=== PATIENT | male | born 1960 | race Caucasian/White ===

== ENCOUNTER → 2018-06-27 01:05 | Outpatient (CLI) | payer BC, SELFPAY ==
--- NOTE | 2018-06-27 08:56 | DI.REPORT_ITS ---
SYMPTOM/DIAGNOSIS: FAMILY H/O POLYCYSTIC KIDNEY DISEASE, Z82.71, H/O NONRUPTURED CEREBRAL ANEURYSM, I67.1 RENAL ULTRASOUND: There are no prior comparison exams. Multiple cysts are noted on both kidneys. There are two large cysts at the upper pole of the right kidney, measuring 14.7 and 9.7 cm. in greatest dimension. A 5.4 cm. cyst is seen in the mid portion of the right kidney. Multiple other smaller cysts are noted. There is no evidence of hydronephrosis. The left kidney shows two cysts superiorly, one measuring 7.7 cm. and the other 6.7 cm. in maximal dimension. The cyst in the mid left kidney measures 6.1 cm. A medial cyst is noted measuring 6.8 cm. There are multiple other smaller cysts. There is no evidence of hydronephrosis. The bladder prevoid volume measured 670 cc's. Both ureteral jets were identified. The postvoid residual measures 54 cc's. No bladder mass or diverticulum is seen. The prostate volume is measured at 38 cc's. A 13 mm. cyst is noted in the left lobe of the liver. IMPRESSION: Multiple bilateral renal cysts. No evidence of hydronephrosis.
== END ==
PROVIDERS: PCP Internal Medicine; Visit Provider Internal Medicine
DX: N28.1 Cyst of kidney, acquired (principal); Z82.71 Family history of polycystic kidney; K76.89 Other specified diseases of liver
CPT/HCPCS: 76770

== ENCOUNTER → 2018-06-28 15:19 | Outpatient (REF) | payer BC, SELFPAY ==
[2018-06-28 20:54] LABS: Anion Gap 7.2 mmol/L (3-11); BUN 24 mg/dL (7-18); CO2 25.8 mmol/L (21.0-32.0); CREATININE 0.96 mg/dL (0.70-1.30); Calcium 8.6 mg/dL (8.5-10.1); Chloride 107 mmol/L (98-107); Glucose 123 mg/dL (70-100); Potassium 3.8 mmol/L (3.5-5.1); Sodium 140 mmol/L (136-145)
== END ==
LOC: NCHCN 15:19
PROVIDERS: PCP Internal Medicine; Visit Provider Internal Medicine
DX: I10 Essential (primary) hypertension (principal); Q61.2 Polycystic kidney, adult type; Z82.71 Family history of polycystic kidney
CPT/HCPCS: 80048

== ENCOUNTER 2018-07-26 00:25 | Outpatient (CLI) | payer BC, SELFPAY ==
--- NOTE | 2018-07-26 14:00 | MERGE_ITS ---
*[facility]* *[facility]* [address] [place] [address] Date of study: 07/26/2018 Transthoracic Echocardiography M-mode, complete 2D, complete spectral Doppler, and color Doppler *STUDY CONCLUSIONS* Summary: 1. Left ventricle: The cavity size was normal. There was mild focal basal hypertrophy of the septum. Systolic function was normal. The estimated ejection fraction was 55-60%. Wall motion was normal; there were no regional wall motion abnormalities. 2. Aortic valve: Trileaflet. There was trivial regurgitation. 3. Aorta: The aorta was not dilated. 4. Mitral valve: There was mild regurgitation. 5. Right ventricle: The cavity size was normal. Wall thickness was normal. Systolic function was normal. *PATIENT PRESENTATION* Height: 190.5cm ((75in) ) S/D Pressure: 144 / 81 Weight: 101.2kg ((222.5lb) ) BSA: 2.33m^2 Test start time: 02:00 PM. Test stop time: 03:00 PM. ORDERING Casey Del Valle MD REFERRING Casey Del Valle MD PERFORMING Unknown PERFORMING [facility] STRATEGIC PLANNING SPECIALIST RT Noa Salguero)(KODI), HARPREET *PROCEDURE DATA* Procedure information: The patient was identified by two identifiers. This study was interpreted by [facility]. Pertinent images and digital data are archived for permanent storage and are available for subsequent review. No prior study was available for comparison. Study status: Routine. Transthoracic echocardiography. M-mode, complete 2D, complete spectral Doppler, and color Doppler. A Transthoracic Echocardiogram was performed. Scanning was performed from the parasternal, apical, subcostal, and suprasternal notch acoustic windows. Images were obtained using an [id number] cardiac ultrasound machine. Image quality was adequate. Study completion: The patient tolerated the procedure well. There were no complications. History: PMH: Polycystic kidney disease. Non ruptured cerebral aneurysm. Assess aorta and aortic arch. *CARDIAC ANATOMY* Left ventricle: The cavity size was normal. There was mild focal basal hypertrophy of the septum. Systolic function was normal. The estimated ejection fraction was 55-60%. Wall motion was normal; there were no regional wall motion abnormalities. Diastolic parameters were normal for age. Aortic valve: Trileaflet; normal thickness leaflets. Mobility was not restricted. Doppler: Transvalvular velocity was within the normal range. There was no stenosis. There was trivial regurgitation. VTI ratio of LVOT to aortic valve: 0.67. Valve area (VTI): 2cm^2. Indexed valve area (VTI): 0.9cm^2/m^2. Peak velocity ratio of LVOT to aortic valve: 0.63. Valve area (Vmax): 1.9cm^2. Indexed valve area (Vmax): 0.8cm^2/m^2. Mean velocity ratio of LVOT to aortic valve: 0.67. Valve area (Vmean): 2cm^2. Indexed valve area (Vmean): 0.9cm^2/m^2. Mean gradient (S): 4.7mm Hg. Peak gradient (S): 8.9mm Hg. Aorta: The aorta was not dilated. Aortic root: The aortic root was normal in size. Ascending aorta: The ascending aorta was normal in size. Mitral valve: Structurally normal valve. Mobility was not restricted. Doppler: Transvalvular velocity was within the normal range. There was no evidence for stenosis. There was mild regurgitation. Valve area by pressure half-time: 4.2cm^2. Indexed valve area by pressure half-time: 1.8cm^2/m^2. Left atrium: The atrium was normal in size. Right ventricle: The cavity size was normal. Wall thickness was normal. Systolic function was normal. Pulmonic valve: Structurally normal valve. The pulmonary valve appears to be grossly normal. Doppler: Transvalvular velocity was within the normal range. There was no evidence for stenosis. There was no significant regurgitation. Peak gradient (S): 5.2mm Hg. Tricuspid valve: Structurally normal valve. Doppler: Transvalvular velocity was within the normal range. There was no evidence for stenosis. There was trivial regurgitation. Pulmonary artery: Pulmonary systolic pressure was within the normal range, in the range of 25mm Hg to 30mm Hg. Right atrium: The atrium was normal in size. Pericardium: There was no pericardial effusion. Systemic veins: Inferior vena cava: Well visualized. The vessel was patent and normal in size. The respirophasic diameter changes were in the normal range (greater than or equal to 50%). Baseline ECG: Normal sinus rhythm. Measurements Left ventricle Value Reference LV ID, ED, PLAX 5.4 cm 3.5 - 6.0 LV ID, ES, PLAX 3.9 cm 2.1 - 4.0 LV PW thickness, ED, PLAX 0.9 cm LV end-diastolic volume, 1-p A2C 108 ml LV ejection fraction, 1-p A2C 58 % LV end-diastolic volume, 1-p A4C 136 ml LV ejection fraction, 1-p A4C 53 % LV e', lateral 0.07 m/sec LV E/e', lateral 10 LV e', medial 0.061 m/sec LV E/e', medial 11 LV e', average 0.066 m/sec LV E/e', average 11 Ventricular septum Value Reference IVS thickness, ED, PLAX 0.7 cm LVOT Value Reference LVOT ID, A-P 2.0 cm LVOT area 3 cm^2 LVOT peak velocity, S 0.95 m/sec LVOT mean velocity, S 0.7 m/sec LVOT VTI, S 19.9 cm LVOT peak gradient, S 3.6 mm Hg LVOT mean gradient, S 2.2 mm Hg Stroke volume (SV), LVOT DP 60 ml Stroke index (SV/bsa), LVOT DP 26 ml/m^2 Aortic valve Value Reference Aortic valve peak velocity, S 1.5 m/sec Aortic valve mean velocity, S 1.04 m/sec Aortic valve VTI, S 29.5 cm Aortic mean gradient, S 4.7 mm Hg Aortic peak gradient, S 8.9 mm Hg VTI ratio, LVOT/AV 0.67 Aortic valve area, VTI 2 cm^2 Velocity ratio, peak, LVOT/AV 0.63 Aortic valve area, peak velocity 1.9 cm^2 Velocity ratio, mean, LVOT/AV 0.67 Aortic valve area, mean velocity 2 cm^2 Aortic valve area/bsa, mean velocity 0.9 cm^2/m^2 Aorta Value Reference Aortic root ID, ED 3.6 cm Ascending aorta ID, A-P, S 3.2 cm RVOT Value Reference RVOT VTI, S 13.7 cm Left atrium Value Reference LA ID, A-P, ES 4.2 cm LA ID/bsa, A-P 1.8 cm/m^2 <=2.2 LA area, ES, A4C 22.8 cm^2 8.8 - 23.4 LA area, ES, A2C 18 cm^2 LA volume/bsa, ES, 1-p A4C 40 ml/m^2 LA volume, ES, 2-p 67 ml LA volume/bsa, ES, 2-p 29 ml/m^2 LA/aortic root ratio 1.16 Mitral valve Value Reference Mitral E-wave peak velocity 0.7 m/sec Mitral A-wave peak velocity 0.84 m/sec Mitral deceleration time 182 ms 150 - 230 Mitral pressure half-time 53 ms Mitral E/A ratio, peak 0.83 Mitral valve area, PHT, DP 4.2 cm^2 Pulmonary veins Value Reference Pulmonary vein peak velocity, S 0.54 m/sec Pulmonary vein peak velocity, D 0.4 m/sec Pulmonary vein velocity ratio, peak, 1.35 S/D Pulmonary vein A-wave reversal peak 0.34 m/sec velocity Pulmonary vein A-wave reversal 149 ms duration Tricuspid valve Value Reference Tricuspid regurg peak velocity 2.4 m/sec Tricuspid peak RV-RA gradient 22.6 mm Hg Right atrium Value Reference RA area, ES, A4C 18.4 cm^2 8.3 - 19.5 Pulmonic valve Value Reference Pulmonic peak gradient, S 5.2 mm Hg Legend: (L) and (H) raman values outside specified reference range. I have personally reviewed the images and have reviewed and edited the reported findings. Electronically signed by Arcenio Mayes 07/26/2018 16:37
== END 2018-07-26 00:45 ==
PROVIDERS: PCP Internal Medicine; Visit Provider Internal Medicine
DX: I10 Essential (primary) hypertension (principal); I67.1 Cerebral aneurysm, nonruptured; Q61.2 Polycystic kidney, adult type; R60.0 Localized edema; I08.0 Rheumatic disorders of both mitral and aortic valves
CPT/HCPCS: 93306

== ENCOUNTER 2019-12-05 16:51 | Outpatient (REF) | payer BC, SELFPAY ==
[2019-12-05 22:07] LABS: Anion Gap 8.8 mmol/L (3-11); BUN 22 mg/dL (7-18); CO2 29.2 mmol/L (21.0-32.0); CREATININE 1.02 mg/dL (0.70-1.30); Calcium 9.3 mg/dL (8.5-10.1); Chloride 103 mmol/L (98-107); Glucose 101 mg/dL (74-106); Potassium 4.6 mmol/L (3.5-5.1); Sodium 141 mmol/L (136-145)
== END 2019-12-05 17:11 ==
LOC: NCHCN 16:51
PROVIDERS: PCP Internal Medicine; Visit Provider Internal Medicine
DX: I10 Essential (primary) hypertension (principal); K21.9 Gastro-esophageal reflux disease without esophagitis; Q61.2 Polycystic kidney, adult type
CPT/HCPCS: 80048

== ENCOUNTER 2020-11-25 20:23 | Outpatient (REF) | payer BC, SELFPAY ==
[2020-11-25 21:07] LABS: Anion Gap 6.1 mmol/L (3-11); BUN 24 mg/dL (7-18); CO2 29.9 mmol/L (21.0-32.0); CREATININE 1.06 mg/dL (0.70-1.30); Calcium 9.1 mg/dL (8.5-10.1); Chloride 106 mmol/L (98-107); Glucose 92 mg/dL (74-106); Potassium 4.4 mmol/L (3.5-5.1); Sodium 142 mmol/L (136-145)
== END 2020-11-25 20:43 ==
LOC: NCHCN 20:23
PROVIDERS: PCP Internal Medicine; Visit Provider Internal Medicine
DX: Q61.2 Polycystic kidney, adult type (principal)
CPT/HCPCS: 80048

== ENCOUNTER 2020-11-27 17:35 | Outpatient (REF) | payer BC, SELFPAY ==
[2020-11-27 21:49] LABS: Bilirubin Negative (Negative); Blood Negative (Negative); Clarity Clear (Clear); Glucose Negative (Negative); Ketones Negative (Negative); Leukocyte Esterase Negative (Negative); Nitrite Negative (Negative); Specific Gravity >= 1.030 (1.005-1.025); Urobilinogen 0.2 EU/dL (Up TO 0.2)
== END 2020-11-27 17:55 ==
LOC: NCHCN 17:35
PROVIDERS: PCP Internal Medicine; Visit Provider Internal Medicine
DX: Q61.2 Polycystic kidney, adult type (principal)
CPT/HCPCS: 81003

== ENCOUNTER 2022-02-18 16:50 | Outpatient (REF) | payer BC, SELFPAY ==
[2022-02-18 20:45] LABS: Anion Gap 7.6 mmol/L (3-11); BUN 28 mg/dL (7-18); CO2 29.4 mmol/L (21.0-32.0); CREATININE 1.1 mg/dL (0.70-1.30); Calcium 8.7 mg/dL (8.5-10.1); Chloride 106 mmol/L (98-107); Glucose 111 mg/dL (74-106); Potassium 3.7 mmol/L (3.5-5.1); Sodium 143 mmol/L (136-145)
== END 2022-02-18 16:51 | disposition home or self-care (01) ==
LOC: NCHCN 16:50
PROVIDERS: PCP Internal Medicine; Visit Provider Family Medicine
DX: I10 Essential (primary) hypertension (principal); Q61.2 Polycystic kidney, adult type
CPT/HCPCS: 80048

== ENCOUNTER 2024-10-30 07:04 | Day surgery (SDC) | payer BC, SELFPAY ==
--- NOTE | 2024-10-29 16:51 | W.PM.DSUDISC ---
Date of service: 10/30/24 Discharge Plan Disposition Patient Disposition: Home Condition: Good Discharge Details Reason For Visit: screening colonoscopy Attending Provider: Xander Haro Primary Care Provider: Félix Mukherjee Home Meds and New Rx's Prescriptions: Continued aspirin [Adult Aspirin Regimen] 81 mg tablet,delayed release (DR/EC) 81 mg PO DAILY omeprazole 10 MG capsule,delayed release(DR/EC) 20 mg PO DIRECTED Patient Comments: dose is every other day lisinopril 40 mg tablet 40 mg PO DAILY metoprolol succinate 50 mg tablet extended release 24 hr 50 mg PO DAILY hydrochlorothiazide 25 MG tablet 25 mg PO DAILY acetaminophen 650 MG tablet extended release 650 mg PO Q8H PRN (Reason: Pain) Qty: 18 0RF dabigatran etexilate [Pradaxa] 150 MG capsule 150 mg PO Q12H Qty: 60 0RF Discontinued bisacodyl [Dulcolax (bisacodyl)] 5 mg tablet,delayed release (DR/EC) 5 mg PO ONCE Qty: 4 0RF Rx Instructions: Take per colonoscopy instructions provided by ordering providers office polyethylene glycol 3350 17 gram/dose powder 17 g PO ONCE Qty: 238 0RF Rx Instructions: Take per colonoscopy instructions provided by ordering providers office Discharge Instructions Additional Instructions: Shun, it was a pleasure meeting you today. I hope you are comfortable throughout the procedure. Everything went very smoothly. Your prep was excellent and I could see everything fine. I did find, and removed 2 tiny polyps in your rectum today. Based on their appearance I suspect they are the same type that you had before. To be safe, however, I will send these off to the pathologist for their review. That information usually takes about a week or 2 to get back, and once my office has all that together, we will be in touch with recommendations for your next colonoscopy. If you need anything at all or have any questions, please do not hesitate to ask at any point. 1. If tolerated, consume a soft, low fiber diet for 1-2 days. 2[address] Do not drive, drink alcohol, operate machinery, make critical decisions, or do activities that require coordination or balance for 24 hours. 3. Because air was put into your colon during the procedure, expelling air from your rectum (passing gas or farting) is normal. 4. You may not have a bowel movement for 1-3 days because of the colonoscopy prep. This is normal. 5. Go directly to the emergency room if you notice any of the following: Develop chills (warm to touch), or if you have a thermometer and your temperature is above 101 Difficulty breathing or difficultly swallowing Persistent vomiting Severe abdominal pain, other than gas cramps Severe chest pain Black, tarry stools Any bleeding ? exceeding one tablespoon 6. Call your physician if the site where your intravenous was started becomes red, swollen, painful, and warm to touch. 7. Your physician has reviewed your pre-procedure medications. Please continue to take those medications as previously ordered. You will be given specific information/education regarding any changes to your medications before leaving. Activity:: Activity as Tolerated Diet:: As Tolerated Discharge Orders Discharge Orders: Discharge Order (Routine); Ordered 10/29/24 Ordered By: Xadner aHro DS: Diagnosis Discharge Diagnosis (1) Encounter for screening colonoscopy: Status: Acute
--- NOTE | 2024-10-29 16:53 | W.COLOREPORT ---
Date of service: 10/30/24 Time of Service: 08: Colonoscopy Report Date of procedure: 10/30/24 Pre-op diagnosis general: screening colonoscopy Post-op diagnosis procedure note: other (Rectal polyps) Procedure: colonoscopy with polypectomy Surgeon: Xander Haro Anesthesia Type: General:No Airway Estimated blood loss (mL): 5 Pathology: other (Less than 0.25 cm rectal polyps x 2) Complications: None Disposition: same day Indications: Noe is a 64 year old man who needs his next screening colonsocopy Prep: Miralax/Dulcolax Procedure Start Time: 08:00 Procedure End Time: 08:14 Retraction Time: 11 Findings: 2 flat tiny rectal polyps Procedure Description: After the induction of anesthesia, and with the patient in left lateral decubitus position, I began by performing an external anorectal exam.? Perineum and skin were normal, as was the anal verge.? There was no evidence of external hemorrhoids.? Next, I performed a digital rectal exam.? I did not appreciate any abnormal findings.? Next, I advanced a colonoscope into the rectal vault.? I performed retroflexion.? This appeared normal.? Using insufflation, I then advanced the colonoscope beyond the rectal folds and into the sigmoid colon before advancing towards the cecum.? The quality of the prep was outstanding.? The scope was noted to be in the cecum by identification of the ileocecal valve and appendiceal orifice.? I then began withdrawing the colonoscope using repeated irrigation as necessary for full evaluation of the colonic mucosa. ?Once the scope was withdrawn to the level of the rectum, great care was taken to examine portions of the rectal folds.? In the upper portion of the rectal vault were 2 tiny polyps. Each of these was well less than 0.25 cm. There were just a few millimeters away from 1 another. These were both removed with cold forceps and sent as a single specimen. There was minimal bleeding from the retrieval sites. Finally, the scope was withdrawn and the patient was brought to the same-day surgery recovery unit as the anesthetic wore off. ?The findings and instructions were shared with the patient prior to discharge. [place] Bowel Prep [place] Bowel Prep Right Colon: 3 Left Colon: 3 Transverse Colon: 3 Total Score: 9
[2024-10-30 07:31] VITALS: BP 146/90; PULSE 72; RESP 17; TEMP 36.4; O2SAT 99
[2024-10-30] MEDS: Lactated Ringers 1,000 ML 80 ML IV (07:40)
--- NOTE | 2024-10-30 07:43 | W.ANESPRE ---
General Info Date of Service Date Performed: 10/30/24 Height: 6 ft 3 in Weight: 110.677 kg Body Mass Index (BMI): 30.4 Surgical Procedure: Operation Date: 10/30/24 08:20 Proposed Procedure Side Surgeon emil Haro MD Meds Allergies and Home Medications Allergies Allergy/AdvReac Type Severity Reaction Status Date / Time chlorthalidone AdvReac Severe muscle Verified 10/30/24 07:26 cramps Home Medication ?Medication ?Instructions ?Recorded omeprazole 10 mg capsule,delayed 20 mg PO DIRECTED 10/15/16 release acetaminophen 650 mg 650 mg PO Q8H PRN Pain ##18 05/17/17 tablet,extended release hydrochlorothiazide 25 mg tablet 25 mg PO DAILY 05/17/17 dabigatran etexilate 150 mg 150 mg PO Q12H DVT, stroke 07/01/17 capsule (Pradaxa) prevention ##60 lisinopril 40 mg tablet 40 mg PO DAILY 09/20/24 metoprolol succinate 50 mg 50 mg PO DAILY 09/20/24 tablet,extended release 24 hr aspirin 81 mg tablet,delayed 81 mg PO DAILY 10/12/24 release (Adult Aspirin Regimen) Current Visit Medications: Current Medications Generic Name Dose Route Start Last Admin Trade Name Freq PRN Reason Stop Dose Admin Ringer's Solution 1,000 mls @ 80 mls/hr 10/30/24 07:15 IV 11/29/24 07:14 INFUSION GRACIE IV Miscellaneous Supplies 1 each 10/30/24 06:00 Iv Access IV 10/30/24 23:59 DIRECTED GRACIE Ondansetron HCl 4 mg 10/29/24 16:54 Ondansetron 4 Mg/2 Ml Vial IVP 11/28/24 16:53 Q4H PRN PRN Nausea / Vomiting Sodium Chloride 0 ml 10/30/24 06:00 Normal Saline Flush 10 Ml Syr IV 10/30/24 23:59 PRN PRN Sodium Chloride 0 ml 10/30/24 06:00 Normal Saline 10 Ml Vial IJ 10/30/24 23:59 DIRECTED PRN Sterile Water 0 ml 10/30/24 06:00 Water,Injection,Sterile 10 Ml Vial IJ 10/30/24 23:59 DIRECTED PRN PFSH Active Problems Active Problems: Problem Status Onset Code Encounter for screening colonoscopy Acute Z12.11 History of DVT (deep vein thrombosis) Acute Z86.718 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 TIA (transient ischemic attack) Acute G45.9 Medical History Medical History Aneurysm, cerebral F/U with [facility] aneurysm 2021 Hydrocele in adult Obesity GERD (gastroesophageal reflux disease) Essential hypertension Surgical History Surgical History Repair of inguinal hernia 1997,1999 Colonoscopy - IV Sedation (~04/20/13) Biopsy, Soft Tissue (10/21/16) skin of nose, seborrheic keratosis Tobacco Smoking/Tobacco Use Status: Never Alcohol Alcohol Intake: former Substance Use Substance use: Never Substance use type: does not use Vital Signs and Lab Results Vital Signs Most Recent Vital Signs in EMR: Most Recent Vital Signs Temp Pulse Resp BP Pulse Ox 36.4 C L 72 17 146/90 H 99 10/30/24 07:31 10/30/24 07:31 10/30/24 07:31 10/30/24 07:31 10/30/24 07:31 Lab Results Blood Type / Crossmatch: No Data to Display Complete Blood Count: No Data to Display Complete Metabolic Panel: No Data to Display Liver Function Panel: No Data to Display Coagulation Panel: No Data to Display Cardiac Panel: No Data to Display Arterial Blood Gas: No Data to Display Venous Blood Gas: No Data to Display Pancreas Panel: No Data to Display Thyroid Panel: No Data to Display Infectious Disease: No Data to Display Blood Cultures: No Data to Display Toxicology Panel: No Data to Display Imaging and Studies Imaging and Studies Study information below may be from another EMR and interpreted by another provider. Please see original notes in EMR for more complete details. Echocardiogram Summary: STUDY CONCLUSIONS* Summary: 1. Left ventricle: The cavity size was normal. There was mild focal basal hypertrophy of the septum. Systolic function was normal. The estimated ejection fraction was 55-60%. Wall motion was normal; there were no regional wall motion abnormalities. 2. Aortic valve: Trileaflet. There was trivial regurgitation. 3. Aorta: The aorta was not dilated. 4. Mitral valve: There was mild regurgitation. 5. Right ventricle: The cavity size was normal. Wall thickness was normal. Systolic function was normal. 07/26/18 Carotid Artery Summary:: CAROTID ULTRASOUND: No plaque is visible. The velocity measurements obtained in the common and internal carotid arteries are in the normal range. There is some systolic velocity elevation in the right external carotid artery. The vessels are tortuous. The vertebral arteries show antegrade flow. IMPRESSION: No significant internal carotid artery stenosis. No evidence of carotid dissection. 06/30/17 Anesthesia Assessment and Plan Anesthesia History Personal History: No History of Anesthesia Complications Family History: No Family History of Anesthesia Complications Exercise Tolerance Exercise Tolerance: Metabolic Equivalents>4 Cardiac & Pulmonary Exam Cardiac Exam: Normal S1/S2 Heart Sounds Pulmonary Exam: Clear Bilateral Breath Sounds Implantable Cardiac Device Does patient have a Pacemaker or an ICD?: No Airway Exam Known Difficult Airway: No Mallampati Class: 2 Mouth Opening: Normal (> 3cm) Thyromental Distance: Greater than 3 cm Neck Range of Motion: Full ROM Neck Circumference: Normal Teeth Condition: Normal Dentition ASA Classification ASA Score: ASA 2 Emergency Case?: No NPO Status NPO Status: NPO Clears >2 hours, Solids >8 hours Anesthesia Plan Resuscitation Status: Full Code Anesthesia Technique: General Anesthesia Airway Planned: Natural Airway Monitors Used: Standard Monitors
[2024-10-30 07:46] VITALS: BMI 30.4
--- NOTE | 2024-10-30 08:11 | BOWEL_PTH ---
PATIENT: Noe Sue LOC: [facility] U#:[id number] AGE/SX: 64/M ROOM: RE10/30/[address]: Xander Haro MD : 1960 BED: DIS: 10/30/2024 SPEC #: [id number]: RECD: 10/30/24 12:55 STATUS: FABIANO REQ #: [id number] ILIANA: 10/30/24 08:[address]: Xander Haro DEPT: Surgical Specimen RECD BY: Ramya Morales ENTERED: 10/30/24 12:55 SP TYPE: Bowel OTHR DR: Félix Mukherjee Tissues: 1 - BIOPSY BOWEL Procedures: GROSS AND MICRO LEVEL 4 Comments: [id number]
[2024-10-30 08:19] VITALS: BP 124/91; PULSE 71; RESP 16; TEMP 36.8; O2SAT 96
[2024-10-30 08:46] VITALS: BP 132/86; PULSE 67; RESP 18; TEMP 37; O2SAT 96
--- NOTE | 2024-10-30 08:47 | W.ANESPOSTOP ---
Postoperative Evaluation Date, Time and Location Date Performed: 10/30/24 Time Performed: 08:19 Patient Location: Day Surgery Unit Vital Signs Most Recent Imported Vital Signs: Most Recent Vital Signs Temp Pulse Resp BP Pulse Ox 37.0 C 67 18 132/86 96 10/30/24 08:46 10/30/24 08:46 10/30/24 08:46 10/30/24 08:46 10/30/24 08:46 Pain Score Most Recent Pain Score: Most Recent Pain Score Pain Level 0 10/30/24 08:19 Assessment Mental Status: Awake (Alert & Oriented to Patient Baseline) Airway and Respiratory Function: Patent airway with normal (patient baseline) respiratory exam Cardiovascular Function: Hemodynamically Stable Hydration Status: Adequately Hydrated Nausea & Vomiting: No Nausea or Vomiting Pain: Pt. Denies Any Pain Peripheral Nerve Block: Patient did not receive a nerve block
== END 2024-10-30 08:55 | disposition home or self-care (01) ==
LOC: SUR 07:05
PROVIDERS: PCP Family Medicine; Visit Provider Surgery
PROC: 0DJD8ZZ Inspection of Lower Intestinal Tract, Via Natural or Artificial Opening Endoscopic (ICD-10-PCS; CPT 45378; principal; 2024-10-30 08:15)
DX: Z12.11 Encounter for screening for malignant neoplasm of colon (principal); K62.1 Rectal polyp
CPT/HCPCS: 45380; 88305; J2704

== ENCOUNTER 2025-08-27 13:49 | Outpatient (REF) | payer BC, SELFPAY ==
[2025-08-27 21:13] LABS: Abs Immature Grans 0.03 10^3/uL (0.0-0.06); HCT 43.2 % (40.0-50.0); HGB 14.8 g/dL (13.5-17.5); Immature Grans % 0.3 %; MCH 31.4 pg (27.0-33.0); MCHC 34.3 % (32.0-36.0); MCV 92 fL (80-95); MPV 10.0 fL (8.0-11.0); Platelet Count 307 10^3/uL (130-400); RBC 4.71 10^6/uL (4.36-5.78); RDW 12.7 % (11.8-14.1); RDW-SD 42.5 fL; WBC 9.53 10^3/uL (4.4-10.8)
[2025-08-27 21:23] LABS: ALT 41 U/L (16-63); AST 20 U/L (15-37); Albumin 3.5 g/dL (3.4-5.0); Alkaline Phosphatase 74 U/L (46-116); Anion Gap 5.8 mmol/L (3-11); BUN 24 mg/dL (7-18); Bilirubin, Total 0.2 mg/dL (0.2-1.0); CO2 30.2 mmol/L (21.0-32.0); Calcium 9.2 mg/dL (8.5-10.1); Chloride 105 mmol/L (98-107); Estimated GFR 95.97 (mL/min/1.73m2); Glucose 87 mg/dL (74-106); Potassium 4.5 mmol/L (3.5-5.1); Sodium 141 mmol/L (136-145); Total Protein 7.2 g/dL (6.4-8.2)
[2025-08-27 21:27] LABS: Hemoglobin A1C 6.3 % (<5.7)
== END 2025-08-27 13:50 | disposition home or self-care (01) ==
LOC: NCHCN 13:49
PROVIDERS: PCP Family Medicine; Visit Provider Family Medicine
DX: I10 Essential (primary) hypertension (principal)
CPT/HCPCS: 80053; 83036; 85025